=== PATIENT | male | born 1990 | race American Indian/Alaskan Native ===

== ENCOUNTER 2020-03-05 08:29 | Emergency (ER) | payer SELFPAY ==
[2020-03-05 11:32] VITALS: BP 133/87
[2020-03-05] MEDS ORDERED: TETRACAINE 0.5% OPHTH SOLN 4ML OU ONE (11:36)
[2020-03-05] MEDS ORDERED: FLUORESCEIN 1 MG STRIP OP ONE (11:36)
[2020-03-05] MEDS ORDERED: BALANCED SALT IRRIG (BSS) OPHTH SOLN 15 ML OU ONE (11:36)
--- NOTE | 2020-03-05 11:36 | Emergency Department Report ---
Eye Injury/Foreign Body - HPI Duration: 3 Days Eye Symptoms: Eye Pain: Yes, Blurred Vision: Yes, Eye Redness: Yes, Photophobia: Yes Other History: 30-year-old -[place] male presents to the emergency room complaining of left eye pain and irritation for the last week. Patient states that he woke up this morning with blurred vision in the left eye. Patient reports that he has some photophobia. Patient reports that he has not been able to drive. Patient reports that he starts to watch TV for about 15 minutes and his eyes will start to pain and drained tears. Patient denies any trauma to his eye. Denies any matting eyelashes or purulent discharge. Denies any headache no nausea no vomiting no dizziness. ED Review of Systems ROS: Stated complaint: EYE PAIN Other details as noted in HPI ED Past Medical Hx - Past Medical History Previous Medical History?: No - Surgical History Past Surgical History?: No - Social History Smoking Status: Current Every Day Smoker - Medications Home Medications: Home Medications Medication Instructions Recorded Confirmed Last Taken Type Permethrin 5% [Acticin 5% CREAM] 60 gm TP ONCE #60 tube 02/12/14 Unknown Rx Erythromycin [Erythromycin Ophth 1 applic QID 10 Days #1 tube 03/05/20 Unknown Rx Oint] prednisoLONE ACETATE 1% [Pred 2 drops OP QID 7 Days #1 bottle 03/05/20 Unknown Rx Forte 1%] Eye Injury Exam - Exam General: Vital signs noted. No distress. Alert and acting appropriately. - Visual Acuity Left Eye Exam: Left Injection, Left EOMI, Left Photophobia, Neither Eye Foreign Body, Neither Lid Foreign Body, Neither Mucous Discharge, Neither Purulent Discharge, Neither Fluorescein Uptake ED Medical Decision Making - Medical Decision Making 30-year-old -[place] male presents to the emergency room complaining of left eye pain and irritation for the last week. Patient states that he woke up this morning with blurred vision in the left eye. Patient reports that he has some photophobia. Patient reports that he has not been able to drive. Patient reports that he starts to watch TV for about 15 minutes and his eyes will start to pain and drained tears. Patient denies any trauma to his eye. Denies any matting eyelashes or purulent discharge. Denies any headache no nausea no vomiting no dizziness. Concern for uveitis will place patient on prednisone drops and erythromycin ophthalmic ointment for possible infection. I discussed the patient is imperative that he sees an bead forming machine set up operator today I have given him several referrals. Patient can take ibuprofen or Tylenol for pain management. Critical care attestation.: If time is entered above; I have spent that time in minutes in the direct care of this critically ill patient, excluding procedure time. ED Disposition Clinical Impression: Uveitis of left eye Is pt being admited?: No Does the pt Need Aspirin: No Condition: Stable Instructions: Iritis (ED) Additional Instructions: It is very important for you to follow-up with an bead forming machine set up operator today. Please use steroid eyedrops and antibiotic eyedrops as prescribed. I am referring you to to bead forming machine set up operator that should be able to see you today. Prescriptions: Erythromycin [Erythromycin Ophth Oint] 1 applic QID 10 Days #1 tube prednisoLONE ACETATE 1% [Pred Forte 1%] 2 drops OP QID 7 Days #1 bottle Referrals: PRIMARY CAREMD [Primary Care Provider] - 3-5 Days ANISHA ARANA MD [Staff Physician] - 3-5 Days [facility] [Provider Group] - 3-5 Days [facility] [Provider Group] - 3-5 Days Forms: Work/School Release Form(ED)
== END 2020-03-05 12:26 | disposition home or self-care (01) ==
LOC: ED 08:29
DX: H20.9 Unspecified iridocyclitis (principal); F17.200 Nicotine dependence, unspecified, uncomplicated; Z79.899 Other long term (current) drug therapy
CPT/HCPCS: 99282